=== PATIENT | female | born 1940 | race Asian ===

== ENCOUNTER 2019-02-06 10:36 | Inpatient (IN) | payer MEDICARE, OTHER ==
[~2019-02-06] VITALS: Ht 157.5 cm; Wt 58.7 kg
[~2019-02-06 10:36] MED LIST: ALEN70TA10 PO; ALLO100T PO; AMLO5TAB66 PO; ASPI-556 PO; ATEN25TA PO; ATOR20TA86 PO; MULT1CAP32 PO; VALS1TAB81 PO
[2019-02-06] MEDS ORDERED: RIVA20TA PO (10:43)
[2019-02-06] MEDS ORDERED: LOSA50TA64 PO (10:43)
[2019-02-06] MEDS ORDERED: CALC-1238 PO (10:43)
[2019-02-06] MEDS ORDERED: METO25XL PO (10:43)
[2019-02-06] MEDS ORDERED: LEVO5TAB13 PO (10:43)
[2019-02-06] MEDS ORDERED: POTASSIUM PO (10:43)
[2019-02-06] MEDS ORDERED: FURO20 PO (10:43)
[2019-02-06 11:35] LABS: HEMOGLOBIN 9.5 g/dL (12.0-16.0)
[2019-02-06 11:40] LABS: MEAN CORPUSCULAR HEMOGLOBIN 22.4 pg (26.0-34.0); MEAN CORPUSCULAR VOLUME 70 fL (80-100)
[2019-02-06 11:41] LABS: RED BLOOD CELL COUNT(AUTO) 4.31 MIL/uL (4.00-5.20)
[2019-02-06 11:42] LABS: BASOPHILS % (AUTO) 0.9 % (0.0-2.0); EOSINOPHILS % (AUTO) 0.5 % (1.0-6.0); HEMATOCRIT 30.4 % (36-46); LYMPHOCYTES # (AUTO) 0.8 K/uL (1.0-4.8); LYMPHOCYTES % (AUTO) 14.9 % (22.0-44.0); MONOCYTES # (AUTO) 0.4 K/uL (0.1-1.0); MONOCYTES % (AUTO) 7.4 % (2.0-9.0); NEUTROPHILS # (AUTO) 4.2 K/uL (1.8-7.7); NEUTROPHILS % (AUTO) 76.3 % (40.0-70.0); PLATELET COUNT (AUTO) 327 K/uL (150-450); RED CELL DISTRIBUTION WIDTH 31.4 % (11.5-14.5)
[2019-02-06 11:59] LABS: CREATININE 1.55 mg/dL (0.60-1.30); POTASSIUM 4.2 mmol/L (3.5-5.1)
[2019-02-06 12:00] LABS: CALCIUM, TOTAL 10.5 mg/dL (8.8-10.5)
[2019-02-06 12:06] LABS: ALBUMIN 3.5 g/dL (3.4-5.0); BILIRUBIN,TOTAL 2.3 mg/dL (0.1-1.0); TOTAL PROTEIN, SERUM 7.2 g/dL (6.4-8.2)
[2019-02-06] MEDS ORDERED: FUROSEMIDE 40 MG/4 ML VIAL IVP ONE (12:45)
[2019-02-06] MEDS ORDERED: ACETAMINOPHEN 325 MG TABLET PO PRN ×2 (13:30→13:45)
[2019-02-06] MEDS ORDERED: ONDANSETRON HCL 4 MG/2 ML VIAL IVP PRN ×2 (13:30→13:45)
[2019-02-06] MEDS ORDERED: SODIUM CHLORIDE 0.9% 500 ML IV ONE (13:30)
[2019-02-06] MEDS ORDERED: 0.9% SODIUM CHLORIDE 10 ML SYRINGE IVP PRN ×2 (13:30→13:45)
[2019-02-06] MEDS ORDERED: DOCUSATE SODIUM 100 MG CAPSULE PO PRN (13:45)
[2019-02-06] MEDS ORDERED: MAGNESIUM HYDROXIDE SUSPENSION 30 ML UDCUP PO PRN (13:45)
[2019-02-06] MEDS ORDERED: BISACODYL 10 MG RECTAL RECTAL SUPPOSITORY PR PRN (13:45)
[2019-02-06] MEDS: ASPIRIN 81 MG CHEWABLE TABLET PO SCH ×2 (14:13→14:38)
[2019-02-06] MEDS: DIGOXIN 250 MCG/ML 2 ML AMP IVP ONE ×2 (14:13→14:38)
[2019-02-06 15:50] LABS: INFLUENZA TYPE A NEGATIVE FOR TYPE A (NEGATIVE); INFLUENZA TYPE B NEGATIVE FOR TYPE B (NEGATIVE)
[2019-02-06] MEDS ORDERED: HEPARIN SODIUM 25000 UNITS/D5W 250 ML IV PRN (16:04)
[2019-02-06] MEDS ORDERED: HEPARIN SODIUM,PORCINE 5,000 UNITS/ML VIAL IVP ONE (16:15)
[2019-02-06] MEDS ORDERED: HEPARIN SODIUM,PORCINE 5,000 UNITS/ML VIAL IVP PRN ×2 (16:15)
[2019-02-06 16:19] LABS: LACTIC ACID 2.8 mmol/L (0.4-2.0)
[2019-02-06] MEDS ORDERED: DIGOXIN 250 MCG/ML 2 ML AMP IVP ONE (16:45)
[2019-02-06 16:55] LABS: HEMATOCRIT 28.9 % (36-46); HEMOGLOBIN 9.2 g/dL (12.0-16.0); MEAN CORPUSCULAR HEMOGLOBIN 22.3 pg (26.0-34.0); MEAN CORPUSCULAR VOLUME 70 fL (80-100); PLATELET COUNT (AUTO) 253 K/uL (150-450); RED BLOOD CELL COUNT(AUTO) 4.13 MIL/uL (4.00-5.20); RED CELL DISTRIBUTION WIDTH 19.9 % (11.5-14.5)
[2019-02-06 17:08] LABS: INR 2.2 (0.9-1.1); PROTHROMBIN TIME 22.7 SEC (9.4-11.6)
[2019-02-06] MEDS ORDERED: DILTIAZEM HCL 30 MG TABLET PO SCH (18:00)
[2019-02-06 18:02] LABS: PATHOLOGY REVIEW, DIFF YES
[2019-02-06] MEDS: ATORVASTATIN CALCIUM 20 MG TABLET PO SCH (22:06)
[2019-02-07 06:01] LABS: BASOPHILS % (AUTO) 0.8 % (0.0-2.0); EOSINOPHILS % (AUTO) 3.8 % (1.0-6.0); HEMATOCRIT 28.3 % (36-46); HEMOGLOBIN 8.9 g/dL (12.0-16.0); LYMPHOCYTES # (AUTO) 1.3 K/uL (1.0-4.8); LYMPHOCYTES % (AUTO) 20.3 % (22.0-44.0); MEAN CORPUSCULAR HEMOGLOBIN 22.5 pg (26.0-34.0); MEAN CORPUSCULAR HGB CONC 31.4 G/dL (31.0-37.0); MEAN CORPUSCULAR VOLUME 72 fL (80-100); MONOCYTES # (AUTO) 0.7 K/uL (0.1-1.0); MONOCYTES % (AUTO) 11.1 % (2.0-9.0); PLATELET COUNT (AUTO) 328 K/uL (150-450); RED BLOOD CELL COUNT(AUTO) 3.95 MIL/uL (4.00-5.20); RED CELL DISTRIBUTION WIDTH 20.2 % (11.5-14.5)
[2019-02-07 06:34] LABS: ALANINE AMINOTRANSFERASE 25 U/L (12-78); ALBUMIN 3.1 g/dL (3.4-5.0); ALKALINE PHOSPHATASE 81 U/L (46-116); ANION GAP 4 mmol/L (8-16); ASPARTATE AMINOTRANSFERASE 38 U/L (15-37); BILIRUBIN,TOTAL 2.5 mg/dL (0.1-1.0); CALCIUM, TOTAL 9.8 mg/dL (8.8-10.5); CARBON DIOXIDE 33 mmol/L (22-29); CHLORIDE 99 mmol/L (98-107); CHOL/HDL RATIO 1.3 (3.9-5.7); CHOLESTEROL 52 mg/dL (131-200); FERRITIN 30 ng/mL (8-252); FREE T4 (FREE THYROXINE) 1.85 ng/dL (0.76-1.46); GLOMERULAR FILTR. RATE CALC 43 mL/min (>60); GLUCOSE,RANDOM 126 mg/dL (70-110); HDL CHOLESTEROL 40 mg/dL (40-60); LDL CHOL (CALC.) 7 mg/dL (0-130); POTASSIUM 3.8 mmol/L (3.5-5.1); SODIUM SERUM 136 mmol/L (136-145); THYROID STIMULATING HORMONE 1.65 uIU/mL (0.36-3.74); TOTAL PROTEIN, SERUM 6.2 g/dL (6.4-8.2); TRIGLYCERIDES 26 mg/dL (15-150); UREA NITROGEN, BLOOD 23 mg/dL (7-18)
[2019-02-07 07:00] LABS: % IRON SATURATION 22.3 % (22-44); IRON, SERUM 70 mcg/dL (50-175); TOTAL IRON BINDING CAPACITY 313 mcg/dL (250-450)
[2019-02-07] MEDS: PANTOPRAZOLE SODIUM 40 MG DR TABLET PO SCH (08:36)
[2019-02-07] MEDS: ASPIRIN 81 MG CHEWABLE TABLET PO SCH (08:36)
[2019-02-07 08:42] LABS: HEMOGLOBIN A1C 7.8 % (4.5-6.2)
[2019-02-07] MEDS ORDERED: FUROSEMIDE 20 MG/2 ML VIAL IVP SCH (09:00)
[2019-02-07] MEDS ORDERED: SLOWK8 PO (11:01)
[2019-02-07] MEDS ORDERED: RIVAROXABAN 20 MG TABLET PO ONE (14:00)
[2019-02-07 14:38] LABS: BAND NEUTROPHILS % (MANUAL) 1 % (0-5); EOSINOPHILS % (MANUAL) 1 % (1-6); LYMPHOCYTES % (MANUAL) 19 % (22-44); MONOCYTES % (MANUAL) 10 % (2-9); SEGMENTED NEUTROPHILS % 69 % (40-70)
[2019-02-07] MEDS: CARVEDILOL 6.25 MG TABLET PO SCH ×2 (17:24→18:30)
[2019-02-07] MEDS: FERROUS SULFATE 325 MG EC TABLET PO SCH (17:24)
[2019-02-07 18:20] VITALS: BP 132/85
[2019-02-07] MEDS: ATORVASTATIN CALCIUM 20 MG TABLET PO SCH (20:44)
[2019-02-07] MEDS: DOCUSATE SODIUM 100 MG CAPSULE PO SCH (20:47)
[2019-02-07 21:28] VITALS: BP 108/59
[2019-02-08 00:28] VITALS: BP 119/79
[2019-02-08] MEDS: FUROSEMIDE 20 MG/2 ML VIAL IVP SCH ×2 (00:28→07:55)
[2019-02-08 04:48] VITALS: BP 101/58
[2019-02-08 07:35] VITALS: BP 108/48
[2019-02-08 08:01] LABS: BASOPHILS % (AUTO) 0.9 % (0.0-2.0); EOSINOPHILS % (AUTO) 4.2 % (1.0-6.0); HEMATOCRIT 28.9 % (36-46); HEMOGLOBIN 9.3 g/dL (12.0-16.0); LYMPHOCYTES # (AUTO) 0.8 K/uL (1.0-4.8); LYMPHOCYTES % (AUTO) 14.6 % (22.0-44.0); MEAN CORPUSCULAR HEMOGLOBIN 22.9 pg (26.0-34.0); MEAN CORPUSCULAR HGB CONC 32.2 G/dL (31.0-37.0); MEAN CORPUSCULAR VOLUME 71 fL (80-100); MONOCYTES # (AUTO) 0.5 K/uL (0.1-1.0); MONOCYTES % (AUTO) 9.1 % (2.0-9.0); NEUTROPHILS # (AUTO) 4.1 K/uL (1.8-7.7); NEUTROPHILS % (AUTO) 71.2 % (40.0-70.0); PLATELET COUNT (AUTO) 354 K/uL (150-450); RED BLOOD CELL COUNT(AUTO) 4.06 MIL/uL (4.00-5.20); RED CELL DISTRIBUTION WIDTH 19.8 % (11.5-14.5)
[2019-02-08 08:46] LABS: INR 1.7 (0.9-1.1); PROTHROMBIN TIME 17.4 SEC (9.4-11.6)
[2019-02-08 09:16] LABS: BILIRUBIN,TOTAL 2.1 mg/dL (0.1-1.0); CALCIUM, TOTAL 9.1 mg/dL (8.8-10.5); CREATININE 1.4 mg/dL (0.60-1.30)
[2019-02-08 09:17] LABS: ALBUMIN 3.2 g/dL (3.4-5.0); TOTAL PROTEIN, SERUM 6.6 g/dL (6.4-8.2)
[2019-02-08] MEDS: DOCUSATE SODIUM 100 MG CAPSULE PO SCH ×2 (10:25→21:00)
[2019-02-08] MEDS: FERROUS SULFATE 325 MG EC TABLET PO SCH ×2 (10:25→17:38)
[2019-02-08] MEDS: PANTOPRAZOLE SODIUM 40 MG DR TABLET PO SCH (10:25)
[2019-02-08] MEDS: CARVEDILOL 6.25 MG TABLET PO SCH ×2 (10:25→17:38)
[2019-02-08] MEDS: ASPIRIN 81 MG CHEWABLE TABLET PO SCH (10:25)
[2019-02-08 10:57] VITALS: BP 115/73
[2019-02-08] MEDS ORDERED: HEPARIN SODIUM,PORCINE 5,000 UNITS/ML VIAL IVP PRN ×2 (12:30)
[2019-02-08] MEDS ORDERED: HEPARIN SODIUM,PORCINE 5,000 UNITS/ML VIAL IVP ONE (12:30)
[2019-02-08 13:18] LABS: BASOPHILS % (AUTO) 0.7 % (0.0-2.0); EOSINOPHILS % (AUTO) 4.5 % (1.0-6.0); HEMATOCRIT 29.7 % (36-46); HEMOGLOBIN 9.3 g/dL (12.0-16.0); LYMPHOCYTES # (AUTO) 1.1 K/uL (1.0-4.8); LYMPHOCYTES % (AUTO) 19.2 % (22.0-44.0); MEAN CORPUSCULAR HEMOGLOBIN 22.3 pg (26.0-34.0); MEAN CORPUSCULAR HGB CONC 31.4 G/dL (31.0-37.0); MEAN CORPUSCULAR VOLUME 71 fL (80-100); MONOCYTES # (AUTO) 0.7 K/uL (0.1-1.0); MONOCYTES % (AUTO) 11.5 % (2.0-9.0); NEUTROPHILS # (AUTO) 3.7 K/uL (1.8-7.7); NEUTROPHILS % (AUTO) 64.1 % (40.0-70.0); PLATELET COUNT (AUTO) 362 K/uL (150-450); RED BLOOD CELL COUNT(AUTO) 4.18 MIL/uL (4.00-5.20); RED CELL DISTRIBUTION WIDTH 20.2 % (11.5-14.5)
[2019-02-08] MEDS: HEPARIN SODIUM 25000 UNITS/D5W 250 ML IV PRN (13:30)
[2019-02-08 13:35] LABS: INR 1.5 (0.9-1.1); PROTHROMBIN TIME 14.9 SEC (9.4-11.6)
[2019-02-08 15:30] VITALS: BP 114/68
[2019-02-08] MEDS ORDERED: MAGNESIUM SULFATE 2 GM/WATER 50 ML IV ONE (17:00)
[2019-02-08] MEDS ORDERED: RIVAROXABAN 20 MG TABLET PO SCH (17:30)
[2019-02-08 19:52] VITALS: BP 107/61
[2019-02-08] MEDS: ATORVASTATIN CALCIUM 20 MG TABLET PO SCH (20:27)
[2019-02-09 00:12] VITALS: BP 112/61
[2019-02-09 04:44] VITALS: BP 110/60
[2019-02-09 07:13] VITALS: BP 114/65
[2019-02-09 07:21] LABS: BASOPHILS % (AUTO) 0.6 % (0.0-2.0); EOSINOPHILS % (AUTO) 5.3 % (1.0-6.0); HEMATOCRIT 28.1 % (36-46); HEMOGLOBIN 9.2 g/dL (12.0-16.0); LYMPHOCYTES # (AUTO) 1.6 K/uL (1.0-4.8); LYMPHOCYTES % (AUTO) 26.7 % (22.0-44.0); MEAN CORPUSCULAR HEMOGLOBIN 22.7 pg (26.0-34.0); MEAN CORPUSCULAR HGB CONC 32.7 G/dL (31.0-37.0); MEAN CORPUSCULAR VOLUME 70 fL (80-100); MONOCYTES # (AUTO) 0.6 K/uL (0.1-1.0); MONOCYTES % (AUTO) 9.9 % (2.0-9.0); NEUTROPHILS # (AUTO) 3.5 K/uL (1.8-7.7); NEUTROPHILS % (AUTO) 57.5 % (40.0-70.0); PLATELET COUNT (AUTO) 350 K/uL (150-450); RED BLOOD CELL COUNT(AUTO) 4.05 MIL/uL (4.00-5.20)
[2019-02-09 07:32] LABS: CALCIUM, TOTAL 8.6 mg/dL (8.8-10.5); CREATININE 1.07 mg/dL (0.60-1.30); MAGNESIUM 1.8 mg/dL (1.80-2.40); POTASSIUM 4.1 mmol/L (3.5-5.1)
[2019-02-09] MEDS: ASPIRIN 81 MG CHEWABLE TABLET PO SCH ×2 (08:23→08:27)
[2019-02-09] MEDS: FUROSEMIDE 20 MG/2 ML VIAL IVP SCH ×2 (08:23→20:30)
[2019-02-09] MEDS: PANTOPRAZOLE SODIUM 40 MG DR TABLET PO SCH (08:23)
[2019-02-09] MEDS: FERROUS SULFATE 325 MG EC TABLET PO SCH ×2 (08:24→18:00)
[2019-02-09] MEDS: CARVEDILOL 6.25 MG TABLET PO SCH ×2 (08:24→18:30)
[2019-02-09] MEDS: DOCUSATE SODIUM 100 MG CAPSULE PO SCH ×2 (08:24→20:33)
[2019-02-09] MEDS ORDERED: FUROSEMIDE 40 MG/4 ML VIAL IVP SCH (09:00)
[2019-02-09 12:33] VITALS: BP 107/51
[2019-02-09] MEDS: HEPARIN SODIUM 25000 UNITS/D5W 250 ML IV PRN (16:17)
[2019-02-09 16:35] VITALS: BP 94/67
[2019-02-09 19:33] VITALS: BP 99/67
[2019-02-09] MEDS: ATORVASTATIN CALCIUM 20 MG TABLET PO SCH (20:30)
[2019-02-10] VITALS (7 sets, daily range): BP systolic 101–132; BP diastolic 56–66
[2019-02-10] MEDS: CARVEDILOL 6.25 MG TABLET PO SCH ×4 (08:30→21:43)
[2019-02-10] MEDS: PANTOPRAZOLE SODIUM 40 MG DR TABLET PO SCH (08:47)
[2019-02-10] MEDS: FERROUS SULFATE 325 MG EC TABLET PO SCH ×2 (08:47→18:08)
[2019-02-10] MEDS: FUROSEMIDE 20 MG/2 ML VIAL IVP SCH ×2 (08:47→21:43)
[2019-02-10] MEDS: ASPIRIN 81 MG CHEWABLE TABLET PO SCH (08:48)
[2019-02-10] MEDS: DOCUSATE SODIUM 100 MG CAPSULE PO SCH ×2 (08:48→21:44)
[2019-02-10 10:29] LABS: BASOPHILS % (AUTO) 0.9 % (0.0-2.0); EOSINOPHILS % (AUTO) 4.8 % (1.0-6.0); HEMATOCRIT 30.4 % (36-46); HEMOGLOBIN 9.4 g/dL (12.0-16.0); LYMPHOCYTES % (AUTO) 19.9 % (22.0-44.0); MEAN CORPUSCULAR HEMOGLOBIN 22.4 pg (26.0-34.0); MEAN CORPUSCULAR HGB CONC 30.8 G/dL (31.0-37.0); MEAN CORPUSCULAR VOLUME 73 fL (80-100); MONOCYTES # (AUTO) 0.5 K/uL (0.1-1.0); MONOCYTES % (AUTO) 9.8 % (2.0-9.0); NEUTROPHILS # (AUTO) 3.4 K/uL (1.8-7.7); NEUTROPHILS % (AUTO) 64.6 % (40.0-70.0); RED BLOOD CELL COUNT(AUTO) 4.18 MIL/uL (4.00-5.20); RED CELL DISTRIBUTION WIDTH 20.2 % (11.5-14.5)
[2019-02-10 10:42] LABS: CALCIUM, TOTAL 8.3 mg/dL (8.8-10.5); CREATININE 1.23 mg/dL (0.60-1.30); POTASSIUM 4.4 mmol/L (3.5-5.1)
[2019-02-10 10:56] LABS: PLATELET COUNT (AUTO) 340 K/uL (150-450)
[2019-02-10] MEDS: ATORVASTATIN CALCIUM 20 MG TABLET PO SCH (21:44)
[2019-02-11] VITALS (8 sets, daily range): BP systolic 100–122; BP diastolic 47–77
[2019-02-11 07:16] LABS: BASOPHILS % (AUTO) 1.1 % (0.0-2.0); EOSINOPHILS % (AUTO) 4.1 % (1.0-6.0); HEMOGLOBIN 9.1 g/dL (12.0-16.0); LYMPHOCYTES # (AUTO) 1.8 K/uL (1.0-4.8); LYMPHOCYTES % (AUTO) 31.7 % (22.0-44.0); MEAN CORPUSCULAR HEMOGLOBIN 22.7 pg (26.0-34.0); MEAN CORPUSCULAR HGB CONC 32.3 G/dL (31.0-37.0); MEAN CORPUSCULAR VOLUME 70 fL (80-100); MONOCYTES # (AUTO) 0.6 K/uL (0.1-1.0); MONOCYTES % (AUTO) 10.6 % (2.0-9.0); NEUTROPHILS % (AUTO) 52.5 % (40.0-70.0); PLATELET COUNT (AUTO) 354 K/uL (150-450); RED BLOOD CELL COUNT(AUTO) 3.99 MIL/uL (4.00-5.20); RED CELL DISTRIBUTION WIDTH 20.4 % (11.5-14.5)
[2019-02-11 07:54] LABS: CALCIUM, TOTAL 8.5 mg/dL (8.8-10.5); CREATININE 1.07 mg/dL (0.60-1.30); POTASSIUM 4.1 mmol/L (3.5-5.1)
[2019-02-11] MEDS: DOCUSATE SODIUM 100 MG CAPSULE PO SCH ×2 (08:26→20:43)
[2019-02-11] MEDS: FERROUS SULFATE 325 MG EC TABLET PO SCH ×2 (08:26→19:00)
[2019-02-11] MEDS: CARVEDILOL 6.25 MG TABLET PO SCH ×2 (08:26→18:30)
[2019-02-11] MEDS: PANTOPRAZOLE SODIUM 40 MG DR TABLET PO SCH (08:26)
[2019-02-11] MEDS: FUROSEMIDE 20 MG/2 ML VIAL IVP SCH ×2 (08:28→20:43)
[2019-02-11] MEDS: ASPIRIN 81 MG CHEWABLE TABLET PO SCH (08:28)
[2019-02-11] MEDS ORDERED: LIDOCAINE/PF 1% 30 ML VIAL ONE (09:05)
[2019-02-11] MEDS ORDERED: HEPARIN SODIUM 1000 UNITS/NS 1,000 ML ONE (09:05)
[2019-02-11] MEDS ORDERED: IOHEXOL 300 MG/ML 150 ML VIAL ONE (09:05)
[2019-02-11] MEDS ORDERED: SODIUM BICARBONATE 50 MEQ/50 ML VIAL ONE (09:05)
[2019-02-11] MEDS ORDERED: MIDAZOLAM HCL 2 MG/2 ML VIAL ONE (09:51)
[2019-02-11] MEDS ORDERED: FentaNYL CITRATE-PF 100 MCG/2 ML VIAL ONE (09:51)
[2019-02-11] MEDS ORDERED: HEPARIN SODIUM 1000 UNITS/NS 1,000 ML IARTER ONE (09:52)
[2019-02-11] MEDS ORDERED: SODIUM CHLORIDE 0.9% 500 ML IV ONE (09:52)
[2019-02-11] MEDS ORDERED: LIDOCAINE 1% 30 ML/SOD BICARB 8.4% 4 ML SQ ONE (10:00)
[2019-02-11] MEDS ORDERED: MIDAZOLAM HCL 2 MG/2 ML VIAL IVP ONE (10:00)
[2019-02-11] MEDS ORDERED: IOHEXOL 300 MG/ML 150 ML VIAL IARTER ONE (10:00)
[2019-02-11] MEDS ORDERED: FentaNYL CITRATE-PF 100 MCG/2 ML VIAL IVP ONE (10:00)
[2019-02-11] MEDS: ATORVASTATIN CALCIUM 20 MG TABLET PO SCH (20:42)
[2019-02-12 04:10] VITALS: BP 106/55
[2019-02-12 06:54] LABS: BASOPHILS % (AUTO) 1.1 % (0.0-2.0); EOSINOPHILS % (AUTO) 4.3 % (1.0-6.0); HEMATOCRIT 29.2 % (36-46); HEMOGLOBIN 9.3 g/dL (12.0-16.0); LYMPHOCYTES % (AUTO) 17.2 % (22.0-44.0); MEAN CORPUSCULAR HEMOGLOBIN 22.5 pg (26.0-34.0); MEAN CORPUSCULAR HGB CONC 31.9 G/dL (31.0-37.0); MEAN CORPUSCULAR VOLUME 71 fL (80-100); MONOCYTES # (AUTO) 0.7 K/uL (0.1-1.0); MONOCYTES % (AUTO) 12.7 % (2.0-9.0); NEUTROPHILS # (AUTO) 3.7 K/uL (1.8-7.7); NEUTROPHILS % (AUTO) 64.7 % (40.0-70.0); PLATELET COUNT (AUTO) 363 K/uL (150-450); RED BLOOD CELL COUNT(AUTO) 4.14 MIL/uL (4.00-5.20)
[2019-02-12 07:14] LABS: CALCIUM, TOTAL 8.4 mg/dL (8.8-10.5); CREATININE 1.08 mg/dL (0.60-1.30); POTASSIUM 4.1 mmol/L (3.5-5.1)
[2019-02-12] MEDS: CARVEDILOL 6.25 MG TABLET PO SCH (08:28)
[2019-02-12] MEDS: FUROSEMIDE 20 MG/2 ML VIAL IVP SCH (08:28)
[2019-02-12] MEDS: FERROUS SULFATE 325 MG EC TABLET PO SCH (08:28)
[2019-02-12] MEDS: PANTOPRAZOLE SODIUM 40 MG DR TABLET PO SCH (08:28)
[2019-02-12] MEDS: DOCUSATE SODIUM 100 MG CAPSULE PO SCH (08:28)
[2019-02-12] MEDS: ASPIRIN 81 MG CHEWABLE TABLET PO SCH (08:28)
[2019-02-12 08:30] VITALS: BP 114/54
[2019-02-12 11:41] VITALS: BP 127/55
[2019-02-12 16:05] VITALS: BP 123/74
== END 2019-02-12 16:50 | disposition home or self-care (01) | DRG 286 ==
LOC: EMS 10:39 → UNDOADMIN 16:22 → 5S 16:22
PROVIDERS: ADMIT Internal Medicine; ATTEND Internal Medicine
PROC: 4A023N8 Measurement of Cardiac Sampling and Pressure, Bilateral, Percutaneous Approach (ICD-10-PCS; principal; 2019-02-11)
PROC: B2111ZZ Fluoroscopy of Multiple Coronary Arteries using Low Osmolar Contrast (ICD-10-PCS; 2019-02-11)
PROC: B41F1ZZ Fluoroscopy of Right Lower Extremity Arteries using Low Osmolar Contrast (ICD-10-PCS; 2019-02-11)
DX: I20.0 Unstable angina (principal); I50.23 Acute on chronic systolic (congestive) heart failure; I13.0 Hypertensive heart and chronic kidney disease with heart failure and stage 1 through stage 4 chronic kidney disease, or unspecified chronic kidney disease; N17.9 Acute kidney failure, unspecified; I48.20 Chronic atrial fibrillation, unspecified; I42.0 Dilated cardiomyopathy; R07.81 Pleurodynia; M10.9 Gout, unspecified; N18.9 Chronic kidney disease, unspecified; E78.00 Pure hypercholesterolemia, unspecified; Z82.49 Family history of ischemic heart disease and other diseases of the circulatory system; E78.5 Hyperlipidemia, unspecified; I34.0 Nonrheumatic mitral (valve) insufficiency; D64.9 Anemia, unspecified; Z79.01 Long term (current) use of anticoagulants
CPT/HCPCS: 82270; 82271; 82728; 83036; 83540; 83550; 83605; 83735; 83970; 84145; 84439; 84443; 85730; 87804; 93005; 93306; 93460; 93970; 99291; J1160; J1644; J1940; J2250; J3010; J3475; J3490; Q9967

== ENCOUNTER 2019-02-23 11:17 | Emergency (ER) | payer MEDICARE, OTHER ==
[~2019-02-23] VITALS: Ht 157.5 cm; Wt 58.7 kg
[~2019-02-23 11:17] MED LIST changes: -ALEN70TA10 PO; -AMLO5TAB66 PO; -ASPI-556 PO; -ATEN25TA PO; +CALC-1238 PO; +FURO20 PO; +LEVO5TAB13 PO; +LOSA50TA64 PO; +METO25XL PO; +RIVA20TA PO; +SLOWK8 PO; -VALS1TAB81 PO
[2019-02-23] MEDS ORDERED: ACETAMINOPHEN 325 MG TABLET PO ONE (13:45)
[2019-02-23] MEDS ORDERED: ACETAMINOPHEN 500 MG TABLET PO ONE (13:45)
[2019-02-23 14:11] LABS: BASOPHILS % (AUTO) 1.2 % (0.0-2.0); EOSINOPHILS % (AUTO) 1.8 % (1.0-6.0); HEMATOCRIT 29.5 % (36-46); HEMOGLOBIN 9.5 g/dL (12.0-16.0); LYMPHOCYTES # (AUTO) 1.4 K/uL (1.0-4.8); LYMPHOCYTES % (AUTO) 25.1 % (22.0-44.0); MEAN CORPUSCULAR HEMOGLOBIN 23.3 pg (26.0-34.0); MEAN CORPUSCULAR HGB CONC 32.3 G/dL (31.0-37.0); MEAN CORPUSCULAR VOLUME 72 fL (80-100); MONOCYTES # (AUTO) 0.5 K/uL (0.1-1.0); MONOCYTES % (AUTO) 9.5 % (2.0-9.0); NEUTROPHILS # (AUTO) 3.5 K/uL (1.8-7.7); NEUTROPHILS % (AUTO) 62.4 % (40.0-70.0); PLATELET COUNT (AUTO) 377 K/uL (150-450); RED BLOOD CELL COUNT(AUTO) 4.08 MIL/uL (4.00-5.20); RED CELL DISTRIBUTION WIDTH 21.7 % (11.5-14.5)
[2019-02-23] MEDS ORDERED: DILTIAZEM HCL 125 MG in DEXTROSE 5%-WATER 100 ML IV PRN (14:12)
[2019-02-23] MEDS ORDERED: DILTIAZEM HCL 5 MG/ML 5 ML VIAL IVP ONE (14:15)
[2019-02-23 14:16] LABS: CALCIUM, TOTAL 10.4 mg/dL (8.8-10.5); CREATININE 1.35 mg/dL (0.60-1.30); POTASSIUM 4.8 mmol/L (3.5-5.1)
[2019-02-23 14:19] LABS: INR 1.8 (0.9-1.1); PROTHROMBIN TIME 18.1 SEC (9.4-11.6)
[2019-02-23 14:22] LABS: ALBUMIN 3.8 g/dL (3.4-5.0); BILIRUBIN,TOTAL 1.8 mg/dL (0.1-1.0); TOTAL PROTEIN, SERUM 7.5 g/dL (6.4-8.2)
[2019-02-23 16:43] VITALS: BP 108/72
== END 2019-02-23 16:55 | disposition home or self-care (01) ==
LOC: EMS 11:19
DX: M75.21 Bicipital tendinitis, right shoulder (principal); I48.91 Unspecified atrial fibrillation; H93.13 Tinnitus, bilateral; I11.0 Hypertensive heart disease with heart failure; I50.9 Heart failure, unspecified; E78.00 Pure hypercholesterolemia, unspecified; Z79.899 Other long term (current) drug therapy
CPT/HCPCS: 36415; 71046; 80053; 82550; 83880; 84484; 85025; 85610; 85730; 93005; 96374; 99291; J3490

== ENCOUNTER 2019-03-14 10:03 | Inpatient (IN) | payer MEDICARE, OTHER ==
[~2019-03-14] VITALS: Ht 154.9 cm; Wt 65.4 kg
[~2019-03-14 10:03] MED LIST changes: +LOSA-88 PO; -LOSA50TA64 PO
[2019-03-14] MEDS ORDERED: SODIUM CHLORIDE 0.9% 1,000 ML IV ONE ×2 (11:30→13:15)
[2019-03-14] MEDS ORDERED: ACETAMINOPHEN 325 MG TABLET PO ONE (12:15)
[2019-03-14 12:24] LABS: HEMATOCRIT 27.5 % (36-46); HEMOGLOBIN 8.6 g/dL (12.0-16.0); MEAN CORPUSCULAR HEMOGLOBIN 22.7 pg (26.0-34.0); MEAN CORPUSCULAR HGB CONC 31.4 G/dL (31.0-37.0); MEAN CORPUSCULAR VOLUME 72 fL (80-100); PLATELET COUNT (AUTO) 247 K/uL (150-450); RED BLOOD CELL COUNT(AUTO) 3.81 MIL/uL (4.00-5.20); RED CELL DISTRIBUTION WIDTH 21.3 % (11.5-14.5)
[2019-03-14 12:25] LABS: CALCIUM, TOTAL 9.6 mg/dL (8.8-10.5); CREATININE 1.82 mg/dL (0.60-1.30); POTASSIUM 5.9 mmol/L (3.5-5.1)
[2019-03-14 12:32] LABS: ALBUMIN 3.5 g/dL (3.4-5.0); BILIRUBIN,TOTAL 2.3 mg/dL (0.1-1.0); TOTAL PROTEIN, SERUM 6.9 g/dL (6.4-8.2)
[2019-03-14] MEDS ORDERED: DILTIAZEM HCL 5 MG/ML 5 ML VIAL IVP ONE (12:45)
[2019-03-14] MEDS ORDERED: DILTIAZEM HCL 125 MG in DEXTROSE 5%-WATER 100 ML IV PRN (12:45)
[2019-03-14 12:57] LABS: BAND NEUTROPHILS % (MANUAL) 0 % (0-5)
[2019-03-14 12:58] LABS: CORRECTED WHITE BLOOD COUNT 4.3 K/uL (4.5-11.0); LYMPHOCYTES % (MANUAL) 20 % (22-44); MONOCYTES % (MANUAL) 8 % (2-9); SEGMENTED NEUTROPHILS % 72 % (40-70)
[2019-03-14] MEDS ORDERED: ASPIRIN 325 MG TABLET PO ONE (13:00)
[2019-03-14] MEDS ORDERED: DEXTROSE 50%-WATER 25 GM/50 ML SYRINGE IVP ONE (13:00)
[2019-03-14] MEDS ORDERED: INSULIN REGULAR, HUMAN 100 UNITS/ML IVP ONE (13:00)
[2019-03-14] MEDS ORDERED: ALBUTEROL SULFATE 5 MG/ML 20 ML NEB SOLN [BULK] NEB ONE (13:00)
[2019-03-14 13:30] LABS: GLUCOSE,POINT OF CARE 90 MG/DL (70-110)
[2019-03-14] MEDS ORDERED: ONDANSETRON HCL 4 MG/2 ML VIAL IVP PRN (15:00)
[2019-03-14] MEDS ORDERED: ACETAMINOPHEN 325 MG TABLET PO PRN ×2 (15:00→22:15)
[2019-03-14 15:25] VITALS: BP 116/72
[2019-03-14 19:42] VITALS: BP 107/57
[2019-03-14] MEDS ORDERED: METOPROLOL TARTRATE 5 MG/5 ML VIAL IVP PRN (21:15)
[2019-03-14] MEDS ORDERED: OxyCODONE HCL/ACETAMINOPHEN 5-325 MG TABLET PO PRN (22:15)
[2019-03-14] MEDS ORDERED: IPRATROPIUM BROMIDE 0.5 MG/2.5 ML NEB SOLUTION NEB PRN (22:15)
[2019-03-14] MEDS ORDERED: ZOLPIDEM TARTRATE 5 MG TABLET PO PRN (22:15)
[2019-03-14] MEDS ORDERED: ALBUTEROL SULFATE 2.5 MG/0.5 ML NEB SOLUTION NEB PRN (22:15)
[2019-03-14] MEDS ORDERED: MAGNESIUM HYDROXIDE SUSPENSION 30 ML UDCUP PO PRN (22:15)
[2019-03-14] MEDS ORDERED: BISACODYL 10 MG RECTAL RECTAL SUPPOSITORY PR PRN (22:15)
[2019-03-14 22:31] VITALS: BP 93/70
[2019-03-15 04:47] VITALS: BP 108/37
[2019-03-15] MEDS ORDERED: METOPROLOL TARTRATE 5 MG/5 ML VIAL IVP PRN (05:15)
[2019-03-15 07:39] LABS: INR 1.8 (0.9-1.1)
[2019-03-15 07:40] LABS: HEMOGLOBIN 8.6 g/dL (12.0-16.0); MEAN CORPUSCULAR HEMOGLOBIN 22.7 pg (26.0-34.0); MEAN CORPUSCULAR HGB CONC 31.7 G/dL (31.0-37.0); MEAN CORPUSCULAR VOLUME 72 fL (80-100); PLATELET COUNT (AUTO) 305 K/uL (150-450); RED BLOOD CELL COUNT(AUTO) 3.78 MIL/uL (4.00-5.20); RED CELL DISTRIBUTION WIDTH 22.2 % (11.5-14.5)
[2019-03-15 07:50] LABS: BAND NEUTROPHILS % (MANUAL) 0 % (0-5)
[2019-03-15 08:01] VITALS: BP 98/60
[2019-03-15 08:08] LABS: ALBUMIN 3.4 g/dL (3.4-5.0); BILIRUBIN,TOTAL 2.3 mg/dL (0.1-1.0); CALCIUM, TOTAL 8.9 mg/dL (8.8-10.5); CHOL/HDL RATIO 1.8 (3.9-5.7); CREATININE 2.16 mg/dL (0.60-1.30); MAGNESIUM 2.1 mg/dL (1.80-2.40); PHOSPHORUS 4.5 mg/dL (2.5-4.9); TOTAL PROTEIN, SERUM 6.7 g/dL (6.4-8.2)
[2019-03-15 08:18] LABS: POTASSIUM 6.1 mmol/L (3.5-5.1)
[2019-03-15 08:37] LABS: CORRECTED WHITE BLOOD COUNT 4.3 K/uL (4.5-11.0); LYMPHOCYTES % (MANUAL) 18 % (22-44); MONOCYTES % (MANUAL) 7 % (2-9); SEGMENTED NEUTROPHILS % 75 % (40-70)
[2019-03-15 08:38] LABS: THYROID STIMULATING HORMONE 2.13 uIU/mL (0.36-3.74)
[2019-03-15 08:41] LABS: HEMOGLOBIN A1C 8.1 % (4.5-6.2)
[2019-03-15] MEDS: FAMOTIDINE 20 MG TABLET PO SCH (08:41)
[2019-03-15] MEDS: CALCIUM OYSTER SHELL 250 MG-VIT D3 125 UNITS TABLET PO SCH ×2 (08:42→20:06)
[2019-03-15] MEDS: MULTIVITAMINS, THERAPEUTIC TABLET PO SCH (08:42)
[2019-03-15] MEDS: METOPROLOL SUCCINATE 25 MG ER TABLET PO SCH (08:43)
[2019-03-15] MEDS: ALLOPURINOL 100 MG TABLET PO SCH (08:43)
[2019-03-15 08:45] VITALS: BP 106/61
[2019-03-15] MEDS ORDERED: SODIUM POLYSTYRENE SULFONATE 15 GM/60 ML SUSPENSION BOTTLE PO ONE (08:45)
[2019-03-15] MEDS ORDERED: LOSARTAN POTASSIUM 50 MG TABLET PO SCH (09:00)
[2019-03-15] MEDS ORDERED: FUROSEMIDE 20 MG TABLET PO SCH (09:00)
[2019-03-15 12:10] VITALS: BP 121/65
[2019-03-15] MEDS ORDERED: GuaiFENesin/D-METHORPHAN [SUGAR-FREE] 200-20MG/10 ML SYRUP UDCUP PO PRN (12:45)
[2019-03-15 13:13] LABS: GLUCOMETER DEV NAME(LOC) 5S.1; GLUCOSE,POINT OF CARE 214 MG/DL (70-110)
[2019-03-15] MEDS ORDERED: DEXTROSE 50%-WATER 25 GM/50 ML SYRINGE IVP ONE (13:15)
[2019-03-15] MEDS ORDERED: INSULIN REGULAR, HUMAN 100 UNITS/ML SQ ONE (13:15)
[2019-03-15] MEDS ORDERED: AMIODARONE HCL 150 MG in DEXTROSE 5%-WATER 97 ML IV ONE (14:15)
[2019-03-15] MEDS ORDERED: AMIODARONE HCL 360 MG in DEXTROSE 5%-WATER 242.8 ML IV ONE (14:30)
[2019-03-15 14:46] LABS: CALCIUM, TOTAL 8.9 mg/dL (8.8-10.5); CREATININE 2.69 mg/dL (0.60-1.30); POTASSIUM 5.4 mmol/L (3.5-5.1)
[2019-03-15 16:13] VITALS: BP 148/73
[2019-03-15] MEDS ORDERED: RIVAROXABAN 20 MG TABLET PO SCH (18:00)
[2019-03-15 19:46] VITALS: BP 130/73
[2019-03-15] MEDS: ATORVASTATIN CALCIUM 20 MG TABLET PO SCH (20:06)
[2019-03-15] MEDS ORDERED: AMIODARONE HCL 540 MG in DEXTROSE 5%-WATER 239.2 ML IV ONE (20:30)
[2019-03-16 00:06] VITALS: BP 99/58
[2019-03-16 05:14] VITALS: BP 95/66
[2019-03-16 07:30] VITALS: BP 94/68
[2019-03-16 07:38] LABS: HEMATOCRIT 25.3 % (36-46); HEMOGLOBIN 8.2 g/dL (12.0-16.0); MEAN CORPUSCULAR HEMOGLOBIN 23.1 pg (26.0-34.0); MEAN CORPUSCULAR HGB CONC 32.3 G/dL (31.0-37.0); MEAN CORPUSCULAR VOLUME 72 fL (80-100); PLATELET COUNT (AUTO) 296 K/uL (150-450); RED BLOOD CELL COUNT(AUTO) 3.53 MIL/uL (4.00-5.20); RED CELL DISTRIBUTION WIDTH 21.5 % (11.5-14.5)
[2019-03-16 07:41] LABS: BAND NEUTROPHILS % (MANUAL) 0 % (0-5)
[2019-03-16 07:53] LABS: ALBUMIN 3.1 g/dL (3.4-5.0); BILIRUBIN,TOTAL 1.9 mg/dL (0.1-1.0); CALCIUM, TOTAL 8.2 mg/dL (8.8-10.5); CREATININE 2.64 mg/dL (0.60-1.30); MAGNESIUM 2.2 mg/dL (1.80-2.40); PHOSPHORUS 4.6 mg/dL (2.5-4.9); POTASSIUM 4.5 mmol/L (3.5-5.1); TOTAL PROTEIN, SERUM 6.3 g/dL (6.4-8.2)
[2019-03-16] MEDS: MULTIVITAMINS, THERAPEUTIC TABLET PO SCH (08:11)
[2019-03-16] MEDS: FAMOTIDINE 20 MG TABLET PO SCH (08:11)
[2019-03-16] MEDS: ALLOPURINOL 100 MG TABLET PO SCH (08:12)
[2019-03-16] MEDS: CALCIUM OYSTER SHELL 250 MG-VIT D3 125 UNITS TABLET PO SCH ×2 (08:12→20:28)
[2019-03-16] MEDS: METOPROLOL SUCCINATE 25 MG ER TABLET PO SCH (08:13)
[2019-03-16 08:35] LABS: BASOPHILS % (MANUAL) 1 % (0-2); CORRECTED WHITE BLOOD COUNT 4.4 K/uL (4.5-11.0); LYMPHOCYTES % (MANUAL) 20 % (22-44); MONOCYTES % (MANUAL) 11 % (2-9); REACTIVE LYMPHOCYTES 2 % (0-0); SEGMENTED NEUTROPHILS % 66 % (40-70)
[2019-03-16] MEDS ORDERED: DIGOXIN 250 MCG/ML 2 ML AMP IVP ONE (10:30)
[2019-03-16] MEDS: AMIODARONE HCL 200 MG TABLET PO SCH ×2 (10:46→20:29)
[2019-03-16 11:13] VITALS: BP 123/56
[2019-03-16] MEDS ORDERED: AMIODARONE HCL 750 MG in DEXTROSE 5%-WATER 485 ML IV SCH (14:30)
[2019-03-16 14:38] LABS: CREATININE,URINE RANDOM 163.2 mg/dL (30.0-125.0); PROTEIN,URINE RANDOM 35 mg/dL (0-11.9); SODIUM,URINE RANDOM 6 mmol/l (20-110); UREA NITROGEN,URINE RANDOM 729 mg/dL (350-1000)
[2019-03-16 14:51] LABS: APPEARANCE,URINE CLEAR (CLEAR); BILIRUBIN,URINE NEGATIVE (NEGATIVE); GLUCOSE, URINE (UA) NEGATIVE (NEGATIVE); KETONES,URINE NEGATIVE (NEGATIVE); LEUKOCYTE ESTERASE ,URINE SMALL (NEGATIVE); NITRATE,URINE NEGATIVE (NEGATIVE); OCCULT BLOOD,URINE NEGATIVE (NEGATIVE); PROTEIN,URINE TRACE (NEGATIVE); UROBILINOGEN,URINE 0.2 mg/dL (<=1.0)
[2019-03-16 15:36] LABS: BACTERIA,URINE Moderate /HPF (None Seen); RBC,URINE None Seen /HPF (0-2)
[2019-03-16 15:37] LABS: SQUAMOUS EPITHELIAL CELL,UR Few /LPF (None Seen)
[2019-03-16 15:38] VITALS: BP 114/55
[2019-03-16] MEDS: ATORVASTATIN CALCIUM 20 MG TABLET PO SCH (20:28)
[2019-03-16] MEDS: APIXABAN 2.5 MG TABLET PO SCH (20:29)
[2019-03-16 20:30] VITALS: BP 100/53
[2019-03-17] VITALS (7 sets, daily range): BP systolic 98–140; BP diastolic 48–66
[2019-03-17] MEDS: METOPROLOL SUCCINATE 25 MG ER TABLET PO SCH (08:13)
[2019-03-17] MEDS: MULTIVITAMINS, THERAPEUTIC TABLET PO SCH (08:13)
[2019-03-17] MEDS: FAMOTIDINE 20 MG TABLET PO SCH (08:14)
[2019-03-17] MEDS: APIXABAN 2.5 MG TABLET PO SCH ×2 (08:14→20:11)
[2019-03-17] MEDS: ALLOPURINOL 100 MG TABLET PO SCH (08:14)
[2019-03-17] MEDS: AMIODARONE HCL 200 MG TABLET PO SCH ×2 (08:14→20:11)
[2019-03-17] MEDS: CALCIUM OYSTER SHELL 250 MG-VIT D3 125 UNITS TABLET PO SCH ×2 (08:14→20:11)
[2019-03-17] MEDS ORDERED: SODIUM CHLORIDE 0.9% 1,000 ML IV ONE (11:00)
[2019-03-17] MEDS: ATORVASTATIN CALCIUM 20 MG TABLET PO SCH (20:11)
[2019-03-18 04:29] VITALS: BP 113/62
[2019-03-18 06:54] LABS: CALCIUM, TOTAL 7.9 mg/dL (8.8-10.5); CREATININE 1.54 mg/dL (0.60-1.30); MAGNESIUM 2.4 mg/dL (1.80-2.40); PHOSPHORUS 2.3 mg/dL (2.5-4.9); POTASSIUM 4.5 mmol/L (3.5-5.1)
[2019-03-18 07:32] VITALS: BP 108/68
[2019-03-18] MEDS: FAMOTIDINE 20 MG TABLET PO SCH (09:01)
[2019-03-18] MEDS: AMIODARONE HCL 200 MG TABLET PO SCH (09:02)
[2019-03-18] MEDS: METOPROLOL SUCCINATE 25 MG ER TABLET PO SCH (09:02)
[2019-03-18] MEDS: ALLOPURINOL 100 MG TABLET PO SCH (09:02)
[2019-03-18] MEDS: CALCIUM OYSTER SHELL 250 MG-VIT D3 125 UNITS TABLET PO SCH (09:02)
[2019-03-18] MEDS: MULTIVITAMINS, THERAPEUTIC TABLET PO SCH (09:02)
[2019-03-18] MEDS: APIXABAN 2.5 MG TABLET PO SCH (09:02)
[2019-03-18 11:08] VITALS: BP 135/66
[2019-03-18 15:16] VITALS: BP 138/62
[2019-03-18 19:49] VITALS: BP 107/64
[2019-03-18] MEDS ORDERED: AMIO100T4 PO (20:31)
[2019-03-18] MEDS ORDERED: APIX2.5T PO (20:31)
[2019-03-18] MEDS ORDERED: FAMO20 PO (20:32)
[2019-03-19] MEDS ORDERED: EPOETIN ALFA 10,000 UNITS/ML VIAL SQ SCH (09:00)
== END 2019-03-18 21:02 | disposition home or self-care (01) | DRG 682 ==
LOC: EMS 10:04 → 5N 13:58
PROVIDERS: ADMIT Internal Medicine; ATTEND Internal Medicine
DX: N17.9 Acute kidney failure, unspecified (principal); K85.90 Acute pancreatitis without necrosis or infection, unspecified; I50.23 Acute on chronic systolic (congestive) heart failure; I48.20 Chronic atrial fibrillation, unspecified; I13.0 Hypertensive heart and chronic kidney disease with heart failure and stage 1 through stage 4 chronic kidney disease, or unspecified chronic kidney disease; N18.4 Chronic kidney disease, stage 4 (severe); E87.5 Hyperkalemia; D64.9 Anemia, unspecified; R79.89 Other specified abnormal findings of blood chemistry; M77.9 Enthesopathy, unspecified; K21.9 Gastro-esophageal reflux disease without esophagitis; M19.90 Unspecified osteoarthritis, unspecified site; I25.5 Ischemic cardiomyopathy; M81.0 Age-related osteoporosis without current pathological fracture; M10.9 Gout, unspecified; E78.5 Hyperlipidemia, unspecified; I25.10 Atherosclerotic heart disease of native coronary artery without angina pectoris; I95.9 Hypotension, unspecified; D72.819 Decreased white blood cell count, unspecified; E11.22 Type 2 diabetes mellitus with diabetic chronic kidney disease; E78.00 Pure hypercholesterolemia, unspecified; I70.0 Atherosclerosis of aorta; Z79.01 Long term (current) use of anticoagulants; Z79.899 Other long term (current) drug therapy
CPT/HCPCS: 76770; 82570; 83036; 83735; 84100; 84156; 84300; 84443; 84540; 87081; 87086; 93005; 93306; 96361; 96374; 96375; J0282; J0885; J1160; J1815; J2405; J3490; J7030; J7060

== ENCOUNTER 2019-06-12 22:53 | Inpatient (IN) | payer MEDICARE, OTHER ==
[~2019-06-12] VITALS: Ht 157.5 cm; Wt 64.0 kg
[~2019-06-12 22:53] MED LIST changes: +APIX2.5T PO; +FAMO20 PO; +FLUT16H NASAL; +HYDR-3831 PO; -LOSA-88 PO; +LOSA50TA37 PO; +POTA8TAB71 PO; -RIVA20TA PO; -SLOWK8 PO
[2019-06-13] VITALS (7 sets, daily range): BP systolic 94–116; BP diastolic 55–75
[2019-06-13 00:23] LABS: ALBUMIN 3.1 g/dL (3.4-5.0); BILIRUBIN,TOTAL 8.3 mg/dL (0.1-1.0); CALCIUM, TOTAL 8.7 mg/dL (8.8-10.5); CREATININE 3.28 mg/dL (0.60-1.30); POTASSIUM 4.6 mmol/L (3.5-5.1); TOTAL PROTEIN, SERUM 7.2 g/dL (6.4-8.2)
[2019-06-13] MEDS ORDERED: ASPIRIN 325 MG TABLET PO ONE (01:00)
[2019-06-13 01:15] LABS: HEMATOCRIT 30.2 % (36-46); HEMOGLOBIN 9.5 g/dL (12.0-16.0); MEAN CORPUSCULAR HEMOGLOBIN 21.5 pg (26.0-34.0); MEAN CORPUSCULAR HGB CONC 31.5 G/dL (31.0-37.0); MEAN CORPUSCULAR VOLUME 68 fL (80-100); RED BLOOD CELL COUNT(AUTO) 4.43 MIL/uL (4.00-5.20); RED CELL DISTRIBUTION WIDTH 31.4 % (11.5-14.5)
[2019-06-13] MEDS ORDERED: ACETAMINOPHEN 325 MG TABLET PO PRN ×2 (01:30→07:30)
[2019-06-13] MEDS ORDERED: ONDANSETRON HCL 4 MG/2 ML VIAL IVP PRN (01:30)
[2019-06-13] MEDS ORDERED: 0.9% SODIUM CHLORIDE 10 ML SYRINGE IVP PRN (01:30)
[2019-06-13 01:36] LABS: PLATELET COUNT (AUTO) 246 K/uL (150-450)
[2019-06-13 01:39] LABS: BAND NEUTROPHILS % (MANUAL) 1 % (0-5); BASOPHILS % (MANUAL) 1 % (0-2); EOSINOPHILS % (MANUAL) 1 % (1-6); LYMPHOCYTES % (MANUAL) 9 % (22-44); MONOCYTES % (MANUAL) 12 % (2-9); SEGMENTED NEUTROPHILS % 76 % (40-70)
[2019-06-13 01:49] LABS: INR 1.5 (0.9-1.1); PROTHROMBIN TIME 14.9 SEC (9.4-11.6)
[2019-06-13] MEDS ORDERED: FUROSEMIDE 40 MG/4 ML VIAL IVP ONE (02:00)
[2019-06-13] MEDS ORDERED: ALBUTEROL SULFATE 2.5 MG/0.5 ML NEB SOLUTION NEB PRN (07:30)
[2019-06-13] MEDS ORDERED: MORPHINE SULFATE 2 MG/ML SYRINGE IVP PRN (07:30)
[2019-06-13] MEDS ORDERED: IPRATROPIUM BROMIDE 0.5 MG/2.5 ML NEB SOLUTION NEB PRN (07:30)
[2019-06-13] MEDS ORDERED: OxyCODONE HCL/ACETAMINOPHEN 5-325 MG TABLET PO PRN (07:30)
[2019-06-13 08:41] LABS: CALCIUM, TOTAL 8.7 mg/dL (8.8-10.5); CREATININE 3.35 mg/dL (0.60-1.30); MAGNESIUM 2.7 mg/dL (1.80-2.40); PHOSPHORUS 3.5 mg/dL (2.5-4.9); POTASSIUM 5.2 mmol/L (3.5-5.1)
[2019-06-13] MEDS: MULTIVITAMINS, THERAPEUTIC TABLET PO SCH (08:54)
[2019-06-13] MEDS: FAMOTIDINE 20 MG TABLET PO SCH (08:54)
[2019-06-13] MEDS: HEPARIN SODIUM,PORCINE 5,000 UNITS/ML VIAL SQ SCH ×2 (08:54→21:12)
[2019-06-13] MEDS: METOPROLOL SUCCINATE 25 MG ER TABLET PO SCH (08:55)
[2019-06-13] MEDS ORDERED: LOSARTAN POTASSIUM 50 MG TABLET PO SCH (09:00)
[2019-06-13] MEDS ORDERED: SODIUM POLYSTYRENE SULFONATE 15 GM/60 ML SUSPENSION BOTTLE PO ONE (14:15)
[2019-06-13] MEDS: FUROSEMIDE 40 MG/4 ML VIAL IVP SCH ×2 (16:10→21:13)
[2019-06-13] MEDS: ATORVASTATIN CALCIUM 20 MG TABLET PO SCH (21:12)
[2019-06-14] VITALS (8 sets, daily range): BP systolic 98–125; BP diastolic 48–68
[2019-06-14] MEDS: FUROSEMIDE 40 MG/4 ML VIAL IVP SCH ×3 (08:00→23:56)
[2019-06-14] MEDS: METOPROLOL SUCCINATE 25 MG ER TABLET PO SCH (09:00)
[2019-06-14] MEDS: MULTIVITAMINS, THERAPEUTIC TABLET PO SCH (09:03)
[2019-06-14] MEDS: FAMOTIDINE 20 MG TABLET PO SCH (09:03)
[2019-06-14] MEDS: HEPARIN SODIUM,PORCINE 5,000 UNITS/ML VIAL SQ SCH ×2 (09:03→20:03)
[2019-06-14 12:42] LABS: HEMATOCRIT 27.8 % (36-46); HEMOGLOBIN 8.6 g/dL (12.0-16.0); MEAN CORPUSCULAR HEMOGLOBIN 21.8 pg (26.0-34.0); MEAN CORPUSCULAR HGB CONC 31.1 G/dL (31.0-37.0); MEAN CORPUSCULAR VOLUME 70 fL (80-100); PLATELET COUNT (AUTO) 138 K/uL (150-450); RED BLOOD CELL COUNT(AUTO) 3.98 MIL/uL (4.00-5.20); RED CELL DISTRIBUTION WIDTH 32.3 % (11.5-14.5)
[2019-06-14 12:47] LABS: BAND NEUTROPHILS % (MANUAL) 2 % (0-5); BASOPHILS % (MANUAL) 1 % (0-2); EOSINOPHILS % (MANUAL) 2 % (1-6); LYMPHOCYTES % (MANUAL) 10 % (22-44); MONOCYTES % (MANUAL) 12 % (2-9); SEGMENTED NEUTROPHILS % 73 % (40-70)
[2019-06-14 13:27] LABS: % IRON SATURATION 32.3 % (22-44)
[2019-06-14 15:18] LABS: ALBUMIN 2.8 g/dL (3.4-5.0); BILIRUBIN,TOTAL 8.1 mg/dL (0.1-1.0); CALCIUM, TOTAL 8.3 mg/dL (8.8-10.5); CREATININE 3.45 mg/dL (0.60-1.30); POTASSIUM 5.1 mmol/L (3.5-5.1); TOTAL PROTEIN, SERUM 6.4 g/dL (6.4-8.2)
[2019-06-14 15:33] LABS: MAGNESIUM 2.7 mg/dL (1.80-2.40); PHOSPHORUS 4.4 mg/dL (2.5-4.9)
[2019-06-14 17:37] LABS: CREATININE,URINE RANDOM 72.4 mg/dL (30.0-125.0); PROTEIN,URINE RANDOM 30 mg/dL (0-11.9); SODIUM,URINE RANDOM 16 mmol/l (20-110); UREA NITROGEN,URINE RANDOM 618 mg/dL (350-1000)
[2019-06-14 17:42] LABS: APPEARANCE,URINE CLOUDY (CLEAR); GLUCOSE, URINE (UA) NEGATIVE (NEGATIVE); KETONES,URINE NEGATIVE (NEGATIVE); LEUKOCYTE ESTERASE ,URINE SMALL (NEGATIVE); NITRATE,URINE NEGATIVE (NEGATIVE); OCCULT BLOOD,URINE NEGATIVE (NEGATIVE); PH,URINE 5.5 (5.0-8.0); PROTEIN,URINE NEGATIVE (NEGATIVE)
[2019-06-14 17:43] LABS: BILIRUBIN,URINE PRELIM. POSITIVE (NEGATIVE)
[2019-06-14 17:44] LABS: BACTERIA,URINE Moderate /HPF (None Seen); RBC,URINE None Seen /HPF (0-2); WBC,URINE 0-2 /HPF (0-5); YEAST,URINE Rare /HPF (None Seen)
[2019-06-14 17:45] LABS: SQUAMOUS EPITHELIAL CELL,UR Few /LPF (None Seen)
[2019-06-14] MEDS: ATORVASTATIN CALCIUM 20 MG TABLET PO SCH (20:03)
[2019-06-15 04:02] VITALS: BP 146/61
[2019-06-15 07:10] LABS: CALCIUM, TOTAL 8.9 mg/dL (8.8-10.5); CREATININE 3.27 mg/dL (0.60-1.30); MAGNESIUM 2.9 mg/dL (1.80-2.40); PHOSPHORUS 4.3 mg/dL (2.5-4.9)
[2019-06-15] MEDS: FUROSEMIDE 40 MG/4 ML VIAL IVP SCH (08:00)
[2019-06-15 08:20] VITALS: BP 101/61
[2019-06-15] MEDS: FAMOTIDINE 20 MG TABLET PO SCH (08:37)
[2019-06-15] MEDS: MULTIVITAMINS, THERAPEUTIC TABLET PO SCH (08:37)
[2019-06-15] MEDS: HEPARIN SODIUM,PORCINE 5,000 UNITS/ML VIAL SQ SCH ×2 (08:43→20:28)
[2019-06-15 11:58] VITALS: BP 116/69
[2019-06-15] MEDS: BUMETANIDE 10 MG in DEXTROSE 5%-WATER 60 ML IV SCH (14:29)
[2019-06-15] MEDS ORDERED: EPOETIN ALFA 10,000 UNITS/ML VIAL SQ SCH (15:00)
[2019-06-15 16:29] VITALS: BP 115/73
[2019-06-15 19:56] VITALS: BP 102/54
[2019-06-15] MEDS: ATORVASTATIN CALCIUM 20 MG TABLET PO SCH (20:28)
[2019-06-15 23:37] VITALS: BP 105/63
[2019-06-16] VITALS (7 sets, daily range): BP systolic 101–129; BP diastolic 50–72
[2019-06-16 08:12] LABS: CALCIUM, TOTAL 8.7 mg/dL (8.8-10.5); CREATININE 2.99 mg/dL (0.60-1.30); MAGNESIUM 2.7 mg/dL (1.80-2.40); PHOSPHORUS 3.9 mg/dL (2.5-4.9)
[2019-06-16] MEDS: FAMOTIDINE 20 MG TABLET PO SCH (08:44)
[2019-06-16] MEDS: MULTIVITAMINS, THERAPEUTIC TABLET PO SCH (08:44)
[2019-06-16] MEDS: BUMETANIDE 10 MG in DEXTROSE 5%-WATER 60 ML IV SCH (08:45)
[2019-06-16] MEDS: HEPARIN SODIUM,PORCINE 5,000 UNITS/ML VIAL SQ SCH ×2 (09:00→21:00)
[2019-06-16] MEDS ORDERED: DIGOXIN 250 MCG/ML 2 ML AMP IVP ONE (11:30)
[2019-06-16 13:09] LABS: BASOPHILS % (AUTO) 0.4 % (0.0-2.0); EOSINOPHILS % (AUTO) 1.3 % (1.0-6.0); HEMATOCRIT 28.7 % (36-46); HEMOGLOBIN 8.9 g/dL (12.0-16.0); LYMPHOCYTES # (AUTO) 0.5 K/uL (1.0-4.8); LYMPHOCYTES % (AUTO) 7.5 % (22.0-44.0); MEAN CORPUSCULAR HEMOGLOBIN 21.6 pg (26.0-34.0); MEAN CORPUSCULAR HGB CONC 30.9 G/dL (31.0-37.0); MEAN CORPUSCULAR VOLUME 70 fL (80-100); MONOCYTES # (AUTO) 0.6 K/uL (0.1-1.0); MONOCYTES % (AUTO) 8.6 % (2.0-9.0); NEUTROPHILS # (AUTO) 5.5 K/uL (1.8-7.7); NEUTROPHILS % (AUTO) 82.2 % (40.0-70.0); RED CELL DISTRIBUTION WIDTH 33.4 % (11.5-14.5)
[2019-06-16 13:55] LABS: PLATELET COUNT (AUTO) 199 K/uL (150-450)
[2019-06-16] MEDS: ATORVASTATIN CALCIUM 20 MG TABLET PO SCH (21:35)
[2019-06-17 05:08] VITALS: BP 110/59
[2019-06-17] MEDS: MULTIVITAMINS, THERAPEUTIC TABLET PO SCH (08:45)
[2019-06-17] MEDS: HEPARIN SODIUM,PORCINE 5,000 UNITS/ML VIAL SQ SCH ×2 (08:45→21:00)
[2019-06-17] MEDS: FAMOTIDINE 20 MG TABLET PO SCH (08:45)
[2019-06-17 08:48] LABS: CALCIUM, TOTAL 8.9 mg/dL (8.8-10.5); CREATININE 2.75 mg/dL (0.60-1.30); MAGNESIUM 2.4 mg/dL (1.80-2.40); POTASSIUM 4.4 mmol/L (3.5-5.1)
[2019-06-17] MEDS: BUMETANIDE 10 MG in DEXTROSE 5%-WATER 60 ML IV SCH (08:49)
[2019-06-17 09:15] VITALS: BP 117/78
[2019-06-17] MEDS: ASPIRIN 81 MG CHEWABLE TABLET PO SCH (10:18)
[2019-06-17] MEDS: METOPROLOL SUCCINATE 25 MG ER TABLET PO SCH (10:18)
[2019-06-17 11:07] VITALS: BP 121/84
[2019-06-17 15:55] VITALS: BP 128/47
[2019-06-17 19:24] VITALS: BP 112/61
[2019-06-17] MEDS: ATORVASTATIN CALCIUM 20 MG TABLET PO SCH (21:25)
[2019-06-17 23:48] VITALS: BP 113/45
[2019-06-18] MEDS: BUMETANIDE 10 MG in DEXTROSE 5%-WATER 60 ML IV SCH (05:23)
[2019-06-18 05:47] VITALS: BP 112/67
[2019-06-18 07:45] VITALS: BP 121/65
[2019-06-18] MEDS ORDERED: CefTRIAXone 1 GM/DEXTROSE 50 ML IV SCH (08:00)
[2019-06-18] MEDS: METOPROLOL SUCCINATE 25 MG ER TABLET PO SCH (08:35)
[2019-06-18] MEDS: MULTIVITAMINS, THERAPEUTIC TABLET PO SCH (08:35)
[2019-06-18] MEDS: ASPIRIN 81 MG CHEWABLE TABLET PO SCH (08:36)
[2019-06-18] MEDS: FAMOTIDINE 20 MG TABLET PO SCH (08:36)
[2019-06-18] MEDS: HEPARIN SODIUM,PORCINE 5,000 UNITS/ML VIAL SQ SCH (08:36)
[2019-06-18 08:41] LABS: CALCIUM, TOTAL 8.9 mg/dL (8.8-10.5); CREATININE 2.31 mg/dL (0.60-1.30); MAGNESIUM 2.1 mg/dL (1.80-2.40); POTASSIUM 4.2 mmol/L (3.5-5.1)
[2019-06-18 11:15] VITALS: BP 113/61
[2019-06-18 15:45] VITALS: BP 118/60
[2019-06-18] MEDS ORDERED: BUME1TAB34 PO (16:53)
[2019-06-18] MEDS ORDERED: CEPH-582 PO (16:55)
== END 2019-06-18 20:30 | disposition home or self-care (01) | DRG 291 ==
LOC: EMS 22:53 → 5S 06-13 02:01
PROVIDERS: ADMIT Internal Medicine; ATTEND Internal Medicine
DX: I13.2 Hypertensive heart and chronic kidney disease with heart failure and with stage 5 chronic kidney disease, or end stage renal disease (principal); I50.23 Acute on chronic systolic (congestive) heart failure; N17.9 Acute kidney failure, unspecified; I48.19 Other persistent atrial fibrillation; N18.5 Chronic kidney disease, stage 5; N39.0 Urinary tract infection, site not specified; R17 Unspecified jaundice; M10.9 Gout, unspecified; D50.9 Iron deficiency anemia, unspecified; M81.0 Age-related osteoporosis without current pathological fracture; R06.03 Acute respiratory distress; R74.0 Nonspecific elevation of levels of transaminase and lactic acid dehydrogenase [LDH]; R09.02 Hypoxemia; E11.65 Type 2 diabetes mellitus with hyperglycemia; E78.5 Hyperlipidemia, unspecified; K21.9 Gastro-esophageal reflux disease without esophagitis; M19.90 Unspecified osteoarthritis, unspecified site; E87.5 Hyperkalemia; D63.1 Anemia in chronic kidney disease; E78.00 Pure hypercholesterolemia, unspecified; E11.22 Type 2 diabetes mellitus with diabetic chronic kidney disease; Z79.01 Long term (current) use of anticoagulants; Z79.899 Other long term (current) drug therapy
CPT/HCPCS: 82570; 82728; 83540; 83550; 83735; 84100; 84156; 84300; 84540; 87081; 87086; 93005; 94640; 97116; 97163; 97530; 99291; J0696; J0885; J1160; J1644; J1940; J3490; J7060